=== PATIENT | female | born 1995 | race Caucasian/White ===

== ENCOUNTER 2016-12-29 15:33 | Emergency (ER) | payer OTHER ==
[~2016-12-29] VITALS: Ht 182.9 cm; Wt 119.7 kg
[~2016-12-29 15:33] MED LIST: OXYC1TAB7 PO; POLY17PO5 PO
[2016-12-29 15:35] VITALS: BP 122/81
== END 2016-12-29 16:24 | disposition home or self-care (01) ==
LOC: ED 16:13
DX: L03.115 Cellulitis of right lower limb (principal); L55.0 Sunburn of first degree
CPT/HCPCS: 99283

== ENCOUNTER 2017-02-11 16:25 | Emergency (ER) | payer OTHER ==
[~2017-02-11] VITALS: Ht 182.9 cm; Wt 110.0 kg
[2017-02-11] MEDS ORDERED: ONDANSETRON 2MG/ML, 2ML IVPush ONE (17:00)
[2017-02-11] MEDS ORDERED: SODIUM CHLORIDE FLUSH 10ML SYR IVF ONE (17:00)
[2017-02-11] MEDS ORDERED: SODIUM CHLORIDE 0.9% 1,000ML IVBOLUS ONE (17:00)
[2017-02-11] MEDS ORDERED: ONDANSETRON 2MG/ML, 2ML ONE (17:05)
[2017-02-11 18:12] LABS: HCG UR OBC PASS
[2017-02-11 18:46] LABS: ASPARTATE AMINO TRANSFERASE 29 U/L (15-37); BLOOD UREA NITROGEN 18 mg/dL (7-18)
[2017-02-11 19:37] VITALS: BP 109/69
== END 2017-02-11 19:41 | disposition home or self-care (01) ==
LOC: ED 19:00
DX: N30.00 Acute cystitis without hematuria (principal); R19.7 Diarrhea, unspecified; Z90.49 Acquired absence of other specified parts of digestive tract; Z87.891 Personal history of nicotine dependence
CPT/HCPCS: 36415; 71020; 80053; 81001; 81025; 83690; 85025; 87086; 96361; 96374; 99285; J2405; J7030

== ENCOUNTER 2017-03-22 17:03 | Emergency (ER) | payer OTHER ==
[~2017-03-22] VITALS: Ht 182.9 cm; Wt 121.0 kg
[2017-03-22 17:52] LABS: ASPARTATE AMINO TRANSFERASE 28 U/L (15-37); BLOOD UREA NITROGEN 11 mg/dL (7-18)
[2017-03-22 18:42] VITALS: BP 116/77
== END 2017-03-22 19:22 | disposition home or self-care (01) ==
LOC: ED 19:16
DX: N97.0 Female infertility associated with anovulation (principal); N30.00 Acute cystitis without hematuria; Z87.891 Personal history of nicotine dependence; Z90.49 Acquired absence of other specified parts of digestive tract
CPT/HCPCS: 36415; 76830; 80053; 81001; 84703; 85025; 87086; 99285